=== PATIENT | female | born 1990 | race Two or more races ===

== ENCOUNTER 2016-09-15 15:44 | Emergency (ER) | payer OTHER ==
[~2016-09-15] VITALS: Ht 172.7 cm; Wt 87.3 kg
[2016-09-15] MEDS ORDERED: KETOROLAC 30 MG/1 ML ONE (16:23)
[2016-09-15] MEDS ORDERED: KETOROLAC 30 MG/1 ML IM ONE (17:30)
[2016-09-15 17:43] VITALS: BP 105/57
== END 2016-09-15 17:48 | disposition home or self-care (01) ==
LOC: ED 16:20
DX: R07.89 Other chest pain (principal); B34.9 Viral infection, unspecified
CPT/HCPCS: 71020; 93005; 96372; 99284; J1885

== ENCOUNTER 2017-04-11 17:37 | Emergency (ER) | payer SELFPAY ==
[~2017-04-11] VITALS: Ht 172.7 cm; Wt 86.8 kg
[2017-04-11 17:39] VITALS: BP 118/87
[2017-04-11] MEDS ORDERED: LIDOCAINE 1%, 20ML ONE (17:51)
[2017-04-11] MEDS ORDERED: LIDOCAINE 1%, 20ML SQ ONE (18:00)
== END 2017-04-11 19:03 | disposition home or self-care (01) ==
LOC: ED 18:57
DX: L02.411 Cutaneous abscess of right axilla (principal)
CPT/HCPCS: 10060; 99283

== ENCOUNTER 2017-04-17 15:44 | Emergency (ER) | payer SELFPAY ==
[~2017-04-17] VITALS: Ht 172.7 cm; Wt 86.7 kg
[2017-04-17 15:46] VITALS: BP 118/83
== END 2017-04-17 16:20 | disposition home or self-care (01) ==
LOC: ED 16:14
DX: K02.9 Dental caries, unspecified (principal); L73.9 Follicular disorder, unspecified; K08.89 Other specified disorders of teeth and supporting structures
CPT/HCPCS: 99283

== ENCOUNTER 2017-11-19 18:51 | Emergency (ER) | payer SELFPAY ==
[~2017-11-19] VITALS: Ht 172.7 cm; Wt 97.3 kg
[2017-11-19] MEDS ORDERED: PREN1TAB60 PO (19:25)
[2017-11-19 19:46] LABS: CULTURE INDICATED? YES; MICROSCOPIC INDICATED
[2017-11-19 19:47] LABS: BASOPHILS % (AUTO) 1 % (0-1); EOSINOPHILS # (AUTO) 0.14 x10^3/uL (0-0.4); EOSINOPHILS % (AUTO) 1 % (1-7); LYMPHOCYTES # (AUTO) 2.78 x10^3/uL (1-3.4); LYMPHOCYTES % (AUTO) 21 % (22-44); MD NO; MEAN CORPUSCULAR HEMOGLOBIN 31.7 pg (27.0-34.8); MEAN CORPUSCULAR HGB CONC 33.4 g/dL (32.4-35.8); MEAN PLATELET VOLUME 6.7 fL (7.4-10.4); MONOCYTES % (AUTO) 6 % (2-9); NEUTROPHILS # (AUTO) 9.75 x10^3/uL (1.8-6.8); NEUTROPHILS % (AUTO) 72 % (42-75); PLATELET COUNT 500 x10^3/uL (130-400); RED BLOOD COUNT 4.35 x10^6/uL (3.82-5.3); RED CELL DISTRIBUTION WIDTH 12.6 % (9.6-15.2)
[2017-11-19 19:56] LABS: ALANINE AMINOTRANSFERASE 15 U/L (12-78); ALBUMIN 3.3 g/dL (3.4-5.0); ANION GAP 8 mmol/L (5-15); CALCIUM 8.5 mg/dL (8.5-10.1); CHLORIDE 105 mmol/L (98-107); CREATININE 0.77 mg/dL (0.55-1.02)
[2017-11-19 20:13] LABS: ALKALINE PHOSPHATASE 54 U/L (45-117); BILIRUBIN,TOTAL 0.3 mg/dL (0.2-1.0); TOTAL PROTEIN 7.3 g/dL (6.4-8.2)
[2017-11-19 20:28] VITALS: BP 114/56
== END 2017-11-19 20:59 | disposition home or self-care (01) ==
LOC: ED 20:45
DX: O26.891 Other specified pregnancy related conditions, first trimester (principal); O23.11 Infections of bladder in pregnancy, first trimester; R31.9 Hematuria, unspecified; Z3A.12 12 weeks gestation of pregnancy
CPT/HCPCS: 36415; 76700; 76801; 80053; 81001; 83690; 84702; 85025; 87086; 99285

== ENCOUNTER 2017-12-26 15:52 | Emergency (ER) | payer SELFPAY ==
[~2017-12-26] VITALS: Ht 172.7 cm; Wt 98.1 kg
[~2017-12-26 15:52] MED LIST: PREN1TAB60 PO
[2017-12-26 15:55] VITALS: BP 119/80
== END 2017-12-26 18:11 | disposition home or self-care (01) ==
LOC: ED 17:30
DX: O26.892 Other specified pregnancy related conditions, second trimester (principal); B02.9 Zoster without complications; Z3A.16 16 weeks gestation of pregnancy
CPT/HCPCS: 99283

== ENCOUNTER 2018-04-08 16:51 | Outpatient (CLI) | payer MEDICAID ==
[~2018-04-08] VITALS: Ht 172.7 cm; Wt 104.5 kg
[2018-04-08 17:02] VITALS: BP 113/61
[2018-04-08] MEDS ORDERED: TERBUTALINE 1 MG/ML, 1ML SQ PRN (17:30)
[2018-04-08] MEDS ORDERED: TERBUTALINE 1 MG/ML, 1ML ONE (17:31)
[2018-04-08 17:39] LABS: CULTURE INDICATED? YES; MICROSCOPIC INDICATED
[2018-04-08 17:42] LABS: AMPHETAMINE SCREEN, URINE Negative (Negative); BARBITURATE SCREEN, URINE Negative (Negative); BENZODIAZEPINE SCREEN, URINE Negative (Negative); CANNABINOID SCREEN, URINE Negative (Negative); COCAINE SCREEN, URINE Negative (Negative); METHADONE SCREEN, URINE Negative (Negative); OPIATE SCREEN, URINE Negative (Negative)
[2018-04-08] MEDS ORDERED: BETAMETHASONE 6 MG/ML, 5ML IM ONE ×2 (18:51→19:00)
== END 2018-04-08 20:32 | disposition home or self-care (01) ==
LOC: LDOP 16:51
PROVIDERS: ATTEND Obstetrics & Gynecology
DX: O26.893 Other specified pregnancy related conditions, third trimester (principal); R10.9 Unspecified abdominal pain; Z3A.32 32 weeks gestation of pregnancy
CPT/HCPCS: 36415; 59025; 80307; 81001; 82731; 87086; 99211; J0702; J3105; G0463